=== PATIENT | female | born 1985 ===

== ENCOUNTER 2024-10-08 14:08 | Emergency (ER) | payer MEDICAID ==
[~2024-10-08] VITALS: Ht 157.5 cm; Wt 75.0 kg
[2024-10-08 14:11] VITALS: O2SAT 100
[2024-10-08] MEDS: MORPHINE SULFATE 4 MG/ML INJ (FOR IV/IM USE) IV ONE ×2 (14:30→16:12)
[2024-10-08 15:23] LABS: BASOPHILS % 0.8 % (0.0-2.0); DIFFERENTIAL COMMENT 0; EOSINOPHILS % 5.9 % (0.0-5.0); HEMATOCRIT. 35.9 % (36.0-48.0); HEMOGLOBIN. 11.3 g/dL (12.0-16.0); LYMPHOCYTES % 30.5 % (20.0-50.0); MEAN CORPUSCULAR HGB CONC 31.5 g/dL (31.0-37.0); MEAN CORPUSCULAR VOLUME 72.9 fL (81.0-99.0); MEAN PLATELET VOLUME 8.5 fl (7.4-10.4); MONOCYTES % 7.8 % (2.0-8.0); PLATELET 376 x1000/uL (130-400); RED BLOOD CELL COUNT 4.92 mill/uL (4.2-5.4); RED CELL DISTRIBUTION WIDTH 17.8 % (11.6-14.6); WHITE BLOOD COUNT 13.1 x1000/uL (4.5-11.0)
[2024-10-08 15:24] LABS: CHLORIDE 106 mEq/L (98-107); POTASSIUM 3.6 mEq/L (3.5-5.1); SODIUM 140 mEq/L (136-145)
[2024-10-08 15:25] LABS: CALCIUM 9.1 mg/dL (8.7-10.4); CARBON DIOXIDE 24 mEq/L (21-32)
[2024-10-08 15:30] LABS: CREATININE 0.8 mg/dL (0.6-1.0); GLUCOSE 102 mg/dL (70-105); UREA NITROGEN BLOOD 12 mg/dL (9-23)
[2024-10-08 15:33] LABS: PROTHROMBIN TIME 10.3 sec (9.6-11.0)
[2024-10-08 15:36] LABS: HCG SCREEN NEGATIVE
[2024-10-08] MEDS ORDERED: CYCL10TA21 MT (16:22)
[2024-10-08] MEDS ORDERED: IBUP-2029 MT (16:22)
[2024-10-08] MEDS ORDERED: DIAZ5TAB MT (16:23)
[2024-10-08] MEDS ORDERED: LIDO700A30 TP (16:23)
[2024-10-08] MEDS ORDERED: IOHEXOL-300 100 ML BOTTLE ONE ×2 (17:08→23:40)
[2024-10-08 17:12] VITALS: BP 163/100; PULSE 85; RESP 16; TEMP 37; O2SAT 100
== END 2024-10-08 17:22 | disposition home or self-care (01) ==
LOC: ER 14:08
DX: S00.83XA Contusion of other part of head, initial encounter (principal); R03.0 Elevated blood-pressure reading, without diagnosis of hypertension; Z98.890 Other specified postprocedural states; Z79.899 Other long term (current) drug therapy; V03.10XA Pedestrian on foot injured in collision with car, pick-up truck or van in traffic accident, initial encounter; Y93.01 Activity, walking, marching and hiking; Y92.89 Other specified places as the place of occurrence of the external cause; Y99.8 Other external cause status
CPT/HCPCS: 80048; 84703; 85025; 85610; 86850; 86900; 86901; 36415; 73070; 70450; 71260; 72125; 74177; 96374; 96376; 99285; Q9967; J2270; Z7610